=== PATIENT | female | born 1970 | race Caucasian/White ===

== ENCOUNTER 2024-11-22 07:37 | Emergency (ER) | payer BC ==
[~2024-11-22] VITALS: Ht 167.6 cm; Wt 63.5 kg
[2024-11-22] MEDS ORDERED: ONDANSETRON HCL/PF 4 MG/2 ML VIAL ONE (08:13)
[2024-11-22] MEDS ORDERED: DICYCLOMINE HCL INJ 20 MG/2 ML AMPUL IM ONE (08:13)
[2024-11-22] MEDS: DICYCLOMINE HCL INJ 20 MG/2 ML AMPUL IM ONE (08:15)
[2024-11-22] MEDS: IV NS 0.9% 1,000 ML BAG IV ONE (08:15)
[2024-11-22] MEDS: ONDANSETRON HCL/PF 4 MG/2 ML VIAL IVP ONE (08:15)
[2024-11-22 08:27] LABS: BASOPHILS % (AUTO) 0.2 % (0.0-2.0); EOSINOPHILS # (AUTO) 0.2 K/uL (0.0-0.7); EOSINOPHILS % (AUTO) 2.7 % (0.0-6.0); HEMATOCRIT 44 % (33-45); HEMOGLOBIN 14.6 g/dL (11.5-14.8); LYMPHOCYTES # (AUTO) 0.8 K/uL (0.8-4.8); LYMPHOCYTES % (AUTO) 8.9 % (20.0-44.0); MEAN CORPUSCULAR HEMOGLOBIN 26 PG (26.0-33.0); MEAN CORPUSCULAR HGB CONC 33 g/dl (31.0-36.0); MEAN CORPUSCULAR VOLUME 78 fL (82-100); MONOCYTES # (AUTO) 0.5 K/uL (0.1-1.30); MONOCYTES % (AUTO) 5.5 % (2.0-12.0); NEUTROPHILS # (AUTO) 7.4 K/uL (1.8-8.9); NEUTROPHILS % (AUTO) 82.7 % (43.0-81.0); PLATELET COUNT (AUTO) 275 K/uL (150-450); RED BLOOD CELL COUNT(AUTO) 5.68 MIL/uL (4.0-5.2); RED CELL DISTRIBUTION WIDTH 13.8 % (11.5-15.0)
[2024-11-22 08:33] LABS: CALCIUM, SERUM 8.6 mg/dL (8.5-10.1); CREATININE 1.2 mg/dL (0.6-1.3); POTASSIUM 3.8 mmol/L (3.5-5.1)
[2024-11-22 08:39] LABS: ALBUMIN 4.4 g/dL (3.4-5.0); BILIRUBIN,DIRECT 0.3 mg/dL (0.0-0.2); TOTAL PROTEIN, SERUM 7.9 g/dL (6.4-8.2)
[2024-11-22] MEDS ORDERED: ONDA4TAB11 PO (09:09)
[2024-11-22] MEDS ORDERED: DICY10CA37 PO (09:09)
[2024-11-22] MEDS ORDERED: ONDANSETRON 4 MG TAB.RAPDIS ONE (10:00)
[2024-11-22] MEDS: ONDANSETRON 4 MG TAB.RAPDIS SL ONE (10:02)
[2024-11-22 10:05] VITALS: BP 108/72; TEMP 98.3; O2SAT 99
== END 2024-11-22 10:06 | disposition home or self-care (01) ==
LOC: ER 07:45
DX: R11.2 Nausea with vomiting, unspecified (principal); R19.7 Diarrhea, unspecified; R10.9 Unspecified abdominal pain; E86.0 Dehydration
CPT/HCPCS: 99284; 96374; 96361; 85025; 80048; 83690; 80076; 36415; 96372; J2405; J7030; J0500; Q0162